=== PATIENT | male | born 1955 | race Caucasian/White ===

== ENCOUNTER 2019-02-05 18:39 | Inpatient (IN) | payer MEDICAID ==
[~2019-02-05] VITALS: Ht 193 cm; Wt 99.8 kg
[2019-02-05 18:57] VITALS: BP_SYST 163
--- NOTE | 2019-02-05 19:04 | NUR ---
Patient triaged and placed in waiting room. VSS and patient appears in no acute distress at this time. Accompanied by girlfriend, Mandy, awaiting available bed, and MD notified of need for MSE.
--- NOTE | 2019-02-05 19:08 | NUR ---
Placed in room 7 . Placed on craft superintendent, blood pressure machine and pulse oximeter. To gown for exam. Side rails up.
--- NOTE | 2019-02-05 19:25 | NUR ---
Report given by scene shifter RN. Pt resting in bed. No signs of acute distress noted at this time. Will continue to monitor.
--- NOTE | 2019-02-05 20:10 | NUR ---
ER MD DOMINGUEZ AT BEDSIDE EXAMINING PATIENT.
[2019-02-05] MEDS ORDERED: DIPH-TET-PERTUS Vaccine 0.5 ML VIAL (ADACEL) I.M. ONE (20:30)
[2019-02-05] MEDS ORDERED: IBUPROFEN 600 MG TABLET PO ONE (20:30)
[2019-02-05] MEDS ORDERED: CEPHALEXIN 500 MG CAPSULE PO ONE (20:30)
[2019-02-05] MEDS ORDERED: SULFAMETHOXAZOLE/TRIMETHOPR DS 1 TABLET PO ONE (20:30)
[2019-02-05] MEDS ORDERED: ONDANSETRON 4 MG ODT TAB PO ONE (20:30)
[2019-02-05 20:46] LABS: BASOPHILS # (AUTO) 0.1 K/uL (0.0-0.2); BASOPHILS % (AUTO) 0.9 % (0.0-2.0); EOSINOPHILS # (AUTO) 0.3 K/uL (0.0-0.4); EOSINOPHILS % (AUTO) 2.8 % (0.0-4.0); HEMATOCRIT 32.2 % (36-54); HEMOGLOBIN 10.9 g/dL (14.0-18.0); LYMPHOCYTES % (AUTO) 9.3 % (20.5-51.5); MEAN CORPUSCULAR HEMOGLOBIN 32 pg (27-31); MEAN CORPUSCULAR HGB CONC 34 % (32-36); MEAN CORPUSCULAR VOLUME 95 fL (79.0-98.0); MONOCYTES % (AUTO) 9.2 % (1.7-9.3); NEUTROPHILS # (AUTO) 8.3 K/uL (1.8-7.7); NEUTROPHILS % (AUTO) 77.8 % (40.0-70.0); PLATELET COUNT (AUTO) 386 K/uL (130-430); RED BLOOD CELL COUNT(AUTO) 3.38 MIL/uL (4.2-6.2); RED CELL DISTRIBUTION WIDTH 13.4 % (9.0-15.0); WHITE BLOOD COUNT (AUTO) 10.7 K/uL (4.8-10.8)
[2019-02-05 20:57] LABS: PROTHROMBIN TIME 10.2 SECS (9.5-12.5)
[2019-02-05 21:27] LABS: CALCIUM 8.3 mg/dL (8.4-11.0); CREATININE 1.39 mg/dL (0.55-1.30); POTASSIUM 3.8 mmol/L (3.5-5.1)
[2019-02-05 21:32] LABS: ALBUMIN 2.6 g/dL (3.4-4.8); TOTAL BILIRUBIN 0.8 mg/dL (0.0-1.0)
--- NOTE | 2019-02-05 22:16 | NUR ---
ultrasound at bedside. pt tolerated well.
--- NOTE | 2019-02-05 22:35 | NUR ---
US tech done with bedside exam.
--- NOTE | 2019-02-05 23:05 | NUR ---
# 18 gauge angiocath placed to RFA. Use of asceptic technique. Opsite placed over site. Blood return noted. Blood for lab drawn from site. Flushed with 10 cc of normal saline. No evidence of infiltration noted. Patient tolerated well.
[2019-02-05] MEDS ORDERED: ENOXAPARIN SODIUM 80 MG/0.8 ML SYRINGE SUBCUT ONE (23:30)
--- NOTE | 2019-02-06 01:07 | NUR ---
ADMIT NOTE Received pt from ER to the floor with a diagnosis of cellulitis and dvt. Admission process initiated. patient oriented to pain management, safety and call light-teach back done.
[2019-02-06 01:10] VITALS: BP_SYST 143
--- NOTE | 2019-02-06 01:10 | NUR ---
Pt transfered to room 135. Report given at bedside. All belongings sent with patient. VSS.
[2019-02-06] MEDS ORDERED: FLU VACC QS2019-20 36MOS UP/PF 60 MCG/0.5 ML SYRINGE I.M. PRN (02:30)
--- NOTE | 2019-02-06 02:34 | NUR ---
ROUNDS Patient in bed, sleeping at this time. No s/s of acute distress noted. Breathing even and unlabored. Call light with patient. Will continue to monitor.
--- NOTE | 2019-02-06 03:41 | NUR ---
Consultation Paged Reason for consultation: CELLULITIS Was consult called: Y Person who was notified: CHRIST Consulting Physician: DR. Rambo MARRUFO Room Service Supervisor Specialty: ID Room Service Supervisor Ordered By: Brad ALVAREZ
--- NOTE | 2019-02-06 04:30 | NUR ---
ROUNDS Patient in bed, sleeping. No signs of discomfort noted. Chest rise and fall even bilaterally. Call light with patient. Will continue to monitor.
--- NOTE | 2019-02-06 06:37 | NUR ---
CLOSING NOTES Patient in bed asleep. No s/s of acute distress noted. Breathing even and unlabored. All needs met throughout shift. Fall and safety precautions maintained throughout shift. Will continue to monitor until patient care is endorsed to oncoming dayshift nurse.
[2019-02-06] MEDS ORDERED: HYDROcodone/ACETAMIN 5-325 MG TAB (NORCO/ VICODIN) PO PRN (07:00)
[2019-02-06] MEDS ORDERED: LORazepam 2 MG/ML VIAL IVP PRN (07:00)
[2019-02-06] MEDS ORDERED: ONDANSETRON HCL 4 MG/2 ML VIAL IVP PRN (07:00)
[2019-02-06] MEDS ORDERED: ACETAMINOPHEN 325 MG TABLET PO PRN (07:00)
[2019-02-06] MEDS ORDERED: *LOVENOX 1MG/KG Q12H/PHARMACY XX ONE (07:00)
--- NOTE | 2019-02-06 07:12 | NUR ---
CONSULTATION PAGED REASON FOR CONSULTATION:DVT WAS CONSULT CALLED? YES PERSON WHO WAS NOTIFIED: LONA CONSULTING PHYSICIAN:DR. HANSEN SPRINKLER IRRIGATION EQUIPMENT MECHANIC SPECIALTY:HEMATOLOGY SPRINKLER IRRIGATION EQUIPMENT MECHANIC PHONE NUMBER:[phone] REQUESTING PHYSICIAN:DR. Brad ALVAREZ
--- NOTE | 2019-02-06 07:50 | NUR ---
INITIAL NOTE RECEIVED PT IN BED, NO S/S OF DISTRESS OR SOB NOTED, PT HAS NO C/O PAIN AT THIS TIME, PT IN STABLE CONDITION, PT AAOX4, VERBAL, IV CATHETER PATENT, NO SIGNS OF INFECTION OR INFILTRATION NOTED, SALINE LOCK. BED AT LOWEST POSITION, CALL LIGHT WITHIN REACH, WILL CONTINUE TO MONITOR PT FOR ANY CHANGES, FALL AND SAFETY PRECAUTIONS IN PLACE. PT ON LOVENOX AND COUMADIN FOR DVT. NO ACTIVE BLEEDING NOTED.
[2019-02-06 07:55] VITALS: BP_SYST 130
[2019-02-06] MEDS: ENOXAPARIN SODIUM 100 MG/ML SYRINGE SUBCUT SCH ×2 (08:57→20:29)
[2019-02-06] MEDS: cefTRIAXone 1 GM IVPB PREMIX 50 ML IV SCH (08:57)
[2019-02-06] MEDS: *LOVENOX 1MG/KG Q12H/PHARMACY XX SCH ×2 (08:59→21:00)
[2019-02-06] MEDS ORDERED: CEFAZOLIN 1 GM IVPB PREMIX 50 ML IV SCH (09:00)
[2019-02-06] MEDS ORDERED: ENOXAPARIN SODIUM 100 MG/ML SYRINGE SUBCUT SCH (09:00)
--- NOTE | 2019-02-06 10:31 | NUR ---
ROUNDS PT IN BED, NO S/S OF DISTRESS OR SOB NOTED, PT HAS NO C/O PAIN AT THIS TIME, PT IN STABLE CONDITION, PT WATCHING TV, WILL CONTINUE TO MONITOR PT FOR ANY CHANGES.
--- NOTE | 2019-02-06 11:09 | NUR ---
Salesperson Parts/Homeless Assessment/Discharge Planning Assessment DRIVE IN TELLER met with patient at bedside. Confirmed contact information is correct. Mailing address in [place] due to girlfriend's family lives there. 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 Unable to save enough funds to move to a home. Was insured with [facility] in [facility] about two years ago. No insurance or medical care since then. Patient denies substance use and history of mental health diagnosis. Offered homeless packet, pointing out [facility] for medical follow up and section 8 housing contact numbers. Email sent to Alpesh with [employer] for [employer] insurance follow up. Called Security who brought weather appropriate clothing for patient. Provided DPOA for health care and discussed with patient and girlfriend. Homeless waiver placed in chart and Homeless Assessment started. Salesperson Parts will remain available.
--- NOTE | 2019-02-06 11:55 | NUR ---
ROUNDS DR ANTONIO BOSCH, AWARE OF PATIENT'S CONDITION, NEW ORDERS GIVEN. Addendum: 02/06/19 at 1329 by Nellie Meyer RN MD MADE AWARE OF THE RESULTS OF THE ULTRASOUND AND THE D DIMER.
--- NOTE | 2019-02-06 12:00 | NUR ---
ROUNDS PT IN BED, TALKING TO VISITOR AT BEDSIDE, PT HAS NO C/O PAIN AT THIS TIME, PT IN STABLE CONDITION, WILL CONTINUE TO MONITOR PT FOR ANY CHANGES, NO S/S OF DISTRESS OR SOB NOTED.
[2019-02-06] MEDS: D5/0.45 NS 1,000 ML IV SCH ×2 (12:12→21:50)
[2019-02-06 12:32] VITALS: BP_SYST 143
[2019-02-06] MEDS ORDERED: NORMAL SALINE 5 ML DISP.SYRIN IVF SCH (14:00)
--- NOTE | 2019-02-06 14:20 | NUR ---
ROUNDS PT IN BED, NO S/S OF DISTRESS OR SOB NOTED, PT HAS NO C/O PAIN AT THIS TIME, PT IN STABLE CONDITION, PT WATCHING TV, VISITOR AT BEDSIDE, WILL CONTINUE TO MONITOR PT FOR ANY CHANGES.
--- NOTE | 2019-02-06 16:10 | NUR ---
ROUNDS PT IN BED, NO S/S OF DISTRESS OR SOB NOTED, PT IN STABLE CONDITION, PT HAS NO C/O PAIN AT THIS TIME. PT WATCHING TV. WILL CONTINUE TO MONITOR PT FOR ANY CHANGES.
[2019-02-06 16:17] VITALS: BP_SYST 133
[2019-02-06] MEDS: WARFARIN SODIUM 5 MG TABLET PO SCH (17:37)
--- NOTE | 2019-02-06 18:26 | NUR ---
CLOSING NOTE PT IN BED, NO S/S OF DISTRESS OR SOB NOTED, PT HAS NO C/O PAIN AT THIS TIME, PT IN STABLE CONDITION, PT AAOX4, VERBAL, IV CATHETER PATENT, NO SIGNS OF INFECTION OR INFILTRATION NOTED, RUNNING IV FLUIDS ORDERED. BED AT LOWEST POSITION, CALL LIGHT WITHIN REACH, WILL ENDORSE CARE OF PT TO INCOMING NURSE, FALL AND SAFETY PRECAUTIONS IN PLACE. NO ACTIVE BLEEDING NOTED.
--- NOTE | 2019-02-06 19:15 | NUR ---
OPENING NOTES Bedside report received from dayshift nurse. Patient received lying in bed, sleeping. No s/s of acute distress noted. Breathing even and unlabored. IVF infusing well. Call light with patient. Will continue to monitor.
--- NOTE | 2019-02-06 21:00 | NUR ---
SHOWER Patient requested to take a shower. Patient assisted to the bathroom. Hygiene supplies given by RN. Will continue to monitor.
--- NOTE | 2019-02-06 21:36 | NUR ---
Admission Note Received patient from ER with diagnosis of renal failure. Initial Plan of Care discussed-patient verbalized understanding. Family at bedside. Oriented to room, call light, pain management and safety. Addendum: 02/06/19 at 2141 by Ravinder Mclean RN DOCUMENTED FOR WRONG PATIENT
[2019-02-06] MEDS: HYDROcodone/ACETAMIN 10-325 MG TAB PO PRN (21:48)
--- NOTE | 2019-02-06 23:00 | NUR ---
ROUNDS Patient sleeping. No s/s of acute distress noted. Breathing even and unlabored. IVF infusing well. Will continue to monitor.
[2019-02-07 00:42] VITALS: BP_SYST 125
--- NOTE | 2019-02-07 01:00 | NUR ---
DR. MARRUFO AT BEDSIDE Lit Khan at bedside assessing patient. All concerns addressed at this time. No new orders given.
--- NOTE | 2019-02-07 03:00 | NUR ---
ROUNDS Patient in bed sleeping. No s/s of acute distress noted. Breathing even and unlabored. Call light with patient. Will continue to monitor.
--- NOTE | 2019-02-07 05:00 | NUR ---
ROUNDS Patient in bed sleeping at this time. No signs of discomfort noted. Chest rise and fall even bilaterally. Call light with patient. Will continue to monitor.
[2019-02-07 05:10] LABS: PROTHROMBIN TIME 10.2 SECS (9.5-12.5)
[2019-02-07 05:13] LABS: ALBUMIN 2.2 g/dL (3.4-4.8); CREATININE 1.23 mg/dL (0.55-1.30); POTASSIUM 4.2 mmol/L (3.5-5.1); TOTAL BILIRUBIN 0.4 mg/dL (0.0-1.0)
[2019-02-07 05:56] LABS: BASOPHILS # (AUTO) 0.1 K/uL (0.0-0.2); EOSINOPHILS # (AUTO) 0.3 K/uL (0.0-0.4); EOSINOPHILS % (AUTO) 2.9 % (0.0-4.0); HEMATOCRIT 31.3 % (36-54); HEMOGLOBIN 10.7 g/dL (14.0-18.0); LYMPHOCYTES # (AUTO) 1.7 K/uL (1.0-5.5); LYMPHOCYTES % (AUTO) 17.6 % (20.5-51.5); MEAN CORPUSCULAR HEMOGLOBIN 33 pg (27-31); MEAN CORPUSCULAR HGB CONC 34 % (32-36); MEAN CORPUSCULAR VOLUME 96 fL (79.0-98.0); MONOCYTES # (AUTO) 0.9 K/uL (0.0-1.0); MONOCYTES % (AUTO) 8.8 % (1.7-9.3); NEUTROPHILS # (AUTO) 6.8 K/uL (1.8-7.7); NEUTROPHILS % (AUTO) 69.7 % (40.0-70.0); PLATELET COUNT (AUTO) 423 K/uL (130-430); RED BLOOD CELL COUNT(AUTO) 3.27 MIL/uL (4.2-6.2); RED CELL DISTRIBUTION WIDTH 13.3 % (9.0-15.0); WHITE BLOOD COUNT (AUTO) 9.7 K/uL (4.8-10.8)
[2019-02-07 06:41] LABS: CALCIUM 8.5 mg/dL (8.4-11.0)
[2019-02-07 06:45] LABS: C-REACTIVE PROTEIN QUANT 16.3 mg/dL (0-0.5)
--- NOTE | 2019-02-07 06:49 | NUR ---
CLOSING NOTES Patient in bed,awake, sitting up. No s/s of acute distress noted. Breathing even and unlabored. IVF infusing well, IV site patent, no signs of infiltration or infection noted. All needs met throughout shift. Fall and safety precautions maintained throughout shift. Will continue to monitor until patient care is endorsed to oncoming dayshift nurse.
[2019-02-07 07:40] VITALS: BP_SYST 142
--- NOTE | 2019-02-07 07:40 | NUR ---
INITIAL NOTE RECEIVED PT IN BED, NO S/S OF DISTRESS OR SOB NOTED, PT HAS NO C/O PAIN AT THIS TIME, PT IN STABLE CONDITION, PT AAOX4, VERBAL, IV CATHETER PATENT, NO SIGNS OF INFECTION OR INFILTRATION NOTED, RUNNING IV FLUIDS ORDERED. BED AT LOWEST POSITION, CALL LIGHT WITHIN REACH, WILL CONTINUE TO MONITOR PT FOR ANY CHANGES, FALL AND SAFETY PRECAUTIONS IN PLACE. PT ON LOVENOX AND COUMADIN FOR DVT. NO ACTIVE BLEEDING NOTED.
[2019-02-07] MEDS: cefTRIAXone 1 GM IVPB PREMIX 50 ML IV SCH (08:08)
[2019-02-07] MEDS: D5/0.45 NS 1,000 ML IV SCH ×2 (08:08→17:13)
[2019-02-07] MEDS: ENOXAPARIN SODIUM 100 MG/ML SYRINGE SUBCUT SCH ×2 (08:10→21:43)
[2019-02-07] MEDS: *LOVENOX 1MG/KG Q12H/PHARMACY XX SCH ×2 (08:15→21:00)
--- NOTE | 2019-02-07 09:50 | NUR ---
MD ROUNDS DR ALVAREZ ROUNDING, AWARE OF PATIENT'S CONDITION.
--- NOTE | 2019-02-07 09:57 | NUR ---
MD ROUNDS DR JADE BOSCH, AWARE OF PATIENT'S CONDITION.
[2019-02-07 10:02] LABS: ERYTHROCYTE SEDIMENTATION RATE 92 MM/HR (0-15)
--- NOTE | 2019-02-07 11:00 | NUR ---
DC Planning: Met with dr. Cabrales for his dcp order to home with Eliquis PO prescription. MELL spoke with pt for the dc planning for tomorrow. Updated him that dr. Cabrales ordered for Eliquis 10 mg po bid for 7 days then 5 mg, po bid for 6 months. The pt confirmed that he has insurance and able to fill prescription. 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 But per Anna and national insurance officer/admitting confirmed that the pt does not have insurance and may not be able to fill the prescription. Mell consulted with director/Seda who help arranging to get the medication for the pt. She faxed the prescription , FS and the Trial offer program for a free medication for 30 days. The admitting dept is able to get pt on the [facility] Presumptive benefits so that , the pt can have medication and care as needed.
[2019-02-07 11:04] VITALS: BP_SYST 144
[2019-02-07 12:18] LABS: BILIRUBIN,URINE NEGATIVE (NEGATIVE); BLOOD, URINE NEGATIVE (NEGATIVE); COLOR,URINE YELLOW (YELLOW); GLUCOSE,URINE NEGATIVE (NEGATIVE); KETONES,URINE NEGATIVE (NEGATIVE); LEUKOCYTE ESTERASE ,URINE NEGATIVE (NEGATIVE); NITRITE, URINE NEGATIVE (NEGATIVE); PH,URINE 5.5 (5.0-8.0); PROTEIN URINE NEGATIVE (NEGATIVE); UROBILINOGEN,URINE 0.2 (0.2-1.0)
[2019-02-07 12:27] LABS: CLARITY/URINE HAZY (CLEAR)
--- NOTE | 2019-02-07 13:02 | NUR ---
IV CATHETER PT ACCIDENTALLY REMOVED HIS IV CATHETER ON RIGHT FOREARM, NO ACTIVE BLEEDING NOTED, CATHETER INTACT, DRESSING APPLIED. PT STATED HE WANTS TO TAKE A BREAK FROM HIS IV AND WANTS IT INSERTED LATER ON, CHARGE NURSE MADE AWARE.
--- NOTE | 2019-02-07 14:30 | NUR ---
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 Patient's mailing address has been changed to his work address in [place]. Patient qualifies for [employer] PE. Seda MONTE director is working on obtaining a 30 day free Rx of Eliquis with a local pharmacy. Will follow up. Addendum: 02/07/19 at 1633 by Anna Barajas LCSW Alpesh North working with patient on [employer] application. Eliquis Rx should be ready by 5pm today at [facility], , [address] [facility], [address]. One month free. Addendum: 02/07/19 at 1700 by Anna Barajas LCSW Prescription and discount card given to girlfriend who will walk to [facility] to obtain the RX.
--- NOTE | 2019-02-07 15:44 | NUR ---
IV CATHETER PT REFUSED TO HAVE IV CATHETER IN PLACE, PT STATED HE DID NOT NEED IT ANYMORE, CHARGE NURSE MADE AWARE, PT VERBALIZED UNDERSTANDING OF NEEDING IV CATHETER IN PLACE FOR FLUIDS,PT CONTINUES TO REFUSE.
[2019-02-07 16:30] VITALS: BP_SYST 138
[2019-02-07] MEDS: WARFARIN SODIUM 5 MG TABLET PO SCH (17:29)
--- NOTE | 2019-02-07 18:46 | NUR ---
CLOSING NOTE PT IN BED, NO S/S OF DISTRESS OR SOB NOTED, PT HAS NO C/O PAIN AT THIS TIME, PT IN STABLE CONDITION, PT AAOX4, VERBAL, PT HAS NO IV CATHETER, REFUSED, CHARGE NURSE AWARE. BED AT LOWEST POSITION, CALL LIGHT WITHIN REACH, WILL ENDORSE CARE OF PT TO INCOMING NURSE, FALL AND SAFETY PRECAUTIONS IN PLACE. PT ON LOVENOX AND COUMADIN FOR DVT. NO ACTIVE BLEEDING NOTED.
[2019-02-07 20:00] VITALS: BP_SYST 142
--- NOTE | 2019-02-07 20:00 | NUR ---
Pt was received lying in bed fully AAO x4. No acute distress noted at this time. Pt has no IV access and is refusing IV restart.Fall, and safety precautions are in place.
--- NOTE | 2019-02-07 22:00 | NUR ---
Pt is resting quietly in bed without any distress noted. Fall and safety precautions are in place.
[2019-02-08] VITALS: BP_SYST 142
--- NOTE | 2019-02-08 | NUR ---
Pt is watching TV and no distress noted. fall and safety precautions are in place.
[2019-02-08] MEDS: HYDROcodone/ACETAMIN 10-325 MG TAB PO PRN ×2 (01:00→09:29)
--- NOTE | 2019-02-08 01:00 | NUR ---
Pt c/o 10/10 right foot and leg pain. [place] 10/325mg 1 tablet as given po.
--- NOTE | 2019-02-08 02:00 | NUR ---
Pt is sleeping without any respiratory distress noted. Call light is with pt and bed is in the lowest and locked positions.
[2019-02-08] MEDS: D5/0.45 NS 1,000 ML IV SCH (04:00)
--- NOTE | 2019-02-08 04:00 | NUR ---
Pt is sleeping comfortably in bed. Fall and safety precautions are in place. Call light is with pt and bed is in the lowest and locked positions.
[2019-02-08 05:19] LABS: PROTHROMBIN TIME 10.3 SECS (9.5-12.5)
[2019-02-08 05:22] LABS: C-REACTIVE PROTEIN QUANT 13.7 mg/dL (0-0.5); CREATININE 1.18 mg/dL (0.55-1.30); POTASSIUM 4.2 mmol/L (3.5-5.1)
[2019-02-08 05:24] LABS: TOTAL IRON BIND. CAPACITY 138 ug/dL (250-450)
[2019-02-08 05:31] LABS: CALCIUM 8.5 mg/dL (8.4-11.0)
--- NOTE | 2019-02-08 06:15 | NUR ---
Pt is resting quietly in bed. All pt's needs were attended to. No acute distress noted at this time. Fall and safety precautions are in place. Will endorse to day shift nurse.
--- NOTE | 2019-02-08 06:50 | NUR ---
Pt wanted to be discharged this AM by Dr. 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 Pt stated he doesn't want to be homeless again because it took him over a year to get this job. Pt stated he does not wish to leave AMA. Spoke with Dr. Zuniga who stated it is not safe for pt to leave yet because pt has DVT and treatment has not reached therapeutic levels. Dr. Zuniga stated that he can not discharge pt yet because it is not safe. Pt was notified. Pt was then convinced by Manager Filter, Miguel to stay and complete treatment. Pt agreed to stay and continue with treatment. Will endorse to day shift nurse.
[2019-02-08 07:01] LABS: BASOPHILS # (AUTO) 0.1 K/uL (0.0-0.2); EOSINOPHILS # (AUTO) 0.3 K/uL (0.0-0.4); EOSINOPHILS % (AUTO) 3.9 % (0.0-4.0); HEMATOCRIT 32.2 % (36-54); HEMOGLOBIN 10.9 g/dL (14.0-18.0); LYMPHOCYTES # (AUTO) 1.7 K/uL (1.0-5.5); LYMPHOCYTES % (AUTO) 19.9 % (20.5-51.5); MEAN CORPUSCULAR HEMOGLOBIN 32 pg (27-31); MEAN CORPUSCULAR HGB CONC 34 % (32-36); MEAN CORPUSCULAR VOLUME 96 fL (79.0-98.0); MONOCYTES # (AUTO) 0.8 K/uL (0.0-1.0); MONOCYTES % (AUTO) 9.8 % (1.7-9.3); NEUTROPHILS # (AUTO) 5.5 K/uL (1.8-7.7); NEUTROPHILS % (AUTO) 65.4 % (40.0-70.0); PLATELET COUNT (AUTO) 478 K/uL (130-430); RED BLOOD CELL COUNT(AUTO) 3.35 MIL/uL (4.2-6.2); RED CELL DISTRIBUTION WIDTH 13.2 % (9.0-15.0); WHITE BLOOD COUNT (AUTO) 8.5 K/uL (4.8-10.8)
--- NOTE | 2019-02-08 08:00 | NUR ---
initial notes rec patient awake alert with no iv line. r leg noted to be swollen and warm to touch. advice to satu in bed as much as possible and kept elevated on a pillow. resp easy and unlabored. no sob noted . bed to the lowest position and side rails up and locked. call light within reached and knows when to call for assistance. will continue to monitor patient.
[2019-02-08 08:20] LABS: ERYTHROCYTE SEDIMENTATION RATE 91 MM/HR (0-15)
[2019-02-08] MEDS: cefTRIAXone 1 GM IVPB PREMIX 50 ML IV SCH (09:16)
[2019-02-08] MEDS: ENOXAPARIN SODIUM 100 MG/ML SYRINGE SUBCUT SCH (09:27)
--- NOTE | 2019-02-08 10:00 | NUR ---
rounds iv restarted on the l forearm with g 22. no infiltration noted and gave abx as ordered. resting comfortably and no sob noted.
[2019-02-08 12:25] VITALS: BP_SYST 124
[2019-02-08] MEDS ORDERED: APIX5TAB PO (14:14)
--- NOTE | 2019-02-08 16:56 | NUR ---
Dietitian Recommendations * Recommend continuing regular diet * campus recruiting internship provided nutrition education RAHUL WALKER Please refer to Nutrition Assessment for details. Addendum: 02/08/19 at [address] Amended: Links added.
--- NOTE | 2019-02-08 17:19 | NUR ---
closing notes pt was discharged after seen by dr henry. ivl was removed and id band. instructed re appt with dr henry next week and make sure to take eliquist as ordered by dr henry. r leg still swollen but safe to go home as per dr alex henry. no osb oted. stable and needs attended. refused to be in the wheelchair and like to ambulate
[2019-02-08] MEDS ORDERED: WARFARIN SODIUM 7.5 MG TABLET PO SCH (18:00)
[2019-02-09 07:11] LABS: FOLATE (FOLIC ACID) 6.9 ng/mL (>3.0)
--- NOTE | 2019-02-21 09:59 | NUR ---
Follow-Up Call: FORMULATION SCIENTIST received a call back from pt regarding a message left by Anna Dyson ([facility]). FORMULATION SCIENTIST verified pt if Rx at [facility] was obtained; pt obtained Rx on 02/08. Pt was also provided with Alpesh Colin phone number which the patient said he will call to f/u on his [employer] application. Pt also stated his swelling is still not healing and might go to the ED in the next few days to get it checked. SS will remain available when needed.
== END 2019-02-08 17:15 | disposition home or self-care (01) | DRG 383 ==
LOC: SED 18:39 → SMU 02-06 00:51
PROVIDERS: ADMIT Preventive Medicine Preventive Medicine/Occupational Environmental Medicine; ATTEND Preventive Medicine Preventive Medicine/Occupational Environmental Medicine
DX: L03.115 Cellulitis of right lower limb (principal); E43 Unspecified severe protein-calorie malnutrition; N17.9 Acute kidney failure, unspecified; I82.411 Acute embolism and thrombosis of right femoral vein; E83.52 Hypercalcemia; E88.09 Other disorders of plasma-protein metabolism, not elsewhere classified; D64.9 Anemia, unspecified; I12.9 Hypertensive chronic kidney disease with stage 1 through stage 4 chronic kidney disease, or unspecified chronic kidney disease; J33.8 Other polyp of sinus; K40.90 Unilateral inguinal hernia, without obstruction or gangrene, not specified as recurrent; N18.9 Chronic kidney disease, unspecified; R00.0 Tachycardia, unspecified; R73.03 Prediabetes; R73.9 Hyperglycemia, unspecified; Z59.0 Homelessness; Z79.899 Other long term (current) drug therapy
CPT/HCPCS: 36415; 80048; 80053; 81003; 82272; 82607; 82728; 82746; 83540-TC; 83550-TC; 85025; 85379; 85610-TC; 85651-TC; 85730-TC; 86140; 87040-TC; 90715; 93971; 99285; J0690; J0696; J1650; Q0162; Q2037

== ENCOUNTER 2019-03-16 15:28 | Emergency (ER) | payer SELFPAY ==
[~2019-03-16] VITALS: Ht 193 cm; Wt 90.7 kg
[~2019-03-16 15:28] MED LIST: APIX5TAB PO
[2019-03-16 15:30] VITALS: BP_SYST 154
== END 2019-03-16 15:51 | disposition left against medical advice (07) ==
LOC: SED 15:28
DX: R21 Rash and other nonspecific skin eruption (principal); Z53.21 Procedure and treatment not carried out due to patient leaving prior to being seen by health care provider